=== PATIENT | male | born 1985 | race Caucasian/White ===

== ENCOUNTER 2019-07-03 11:10 | Emergency (ER) | payer BC ==
[~2019-07-03] VITALS: Ht 180.3 cm; Wt 97.1 kg
[2019-07-03 11:15] VITALS: Ht 180.3 cm; Wt 97.1 kg
[2019-07-03 12:22] LABS: BASOPHIL % 0.4 % (0-2); PLATELET COUNT 221 x10^3mcL (130-400); RED CELL DISTRIBUTION WIDTH 13.9 % (11.5-14.5)
[2019-07-03 12:39] LABS: ALBUMIN 4.2 g/dL (3.4-5.0); ALKALINE PHOSPHATASE 93 U/L (46-116); ALT/SGPT 94 U/L (16-63); AST/SGOT 40 U/L (15-37); BILIRUBIN TOTAL 1.6 mg/dL (0.20-1.00); CARBON DIOXIDE 26.5 mmol/L (21-32); CHLORIDE SERUM 101 mmol/L (98-107); CREATININE SERUM 1.1 mg/dL (0.7-1.3); GFR1 > 60 mL/min; GLUCOSE SERUM 88 mg/dL (74-106); POTASSIUM SERUM 4.5 mmol/L (3.5-5.1); SODIUM SERUM 137 mmol/L (136-145); TOTAL PROTEIN, SERUM 7.8 g/dL (6.4-8.2)
[2019-07-03 13:31] LABS: CK-MB < 0.5 ng/mL (0-3.6); CREATINE KINASE 107 U/L (39-308)
[2019-07-03 14:21] VITALS: BP 137/84
== END 2019-07-03 14:21 | disposition home or self-care (01) ==
LOC: ED 11:10
PROVIDERS: Emergency Medicine
DX: M94.0 Chondrocostal junction syndrome [Tietze] (principal); F45.8 Other somatoform disorders
CPT/HCPCS: 36600; 83880; J1885; J7030